=== PATIENT | male | born 1985 | race Caucasian/White ===

== ENCOUNTER 2023-01-01 07:43 | Emergency (ER) | payer OTHER ==
[~2023-01-01] VITALS: Ht 182.9 cm; Wt 90.7 kg
[2023-01-01] MEDS ORDERED: NARCAN4 M1 (10:57)
[2023-01-01] MEDS ORDERED: CATAPRES0.1 MG PO (10:57)
== END 2023-01-01 11:19 | disposition home or self-care (01) ==
LOC: ER 07:43
DX: F11.93 Opioid use, unspecified with withdrawal (principal)
CPT/HCPCS: 99283; A9270